=== PATIENT | male | born 1985 | race Caucasian/White ===

== ENCOUNTER 2016-06-07 18:27 | Emergency (ER) | payer BC ==
[2016-06-07 18:41] VITALS: BP 169/91; PULSE 100; RESP 20; TEMP 98.5
[2016-06-07] MEDS ORDERED: SODIUM CHLORIDE 0.9% 2,000 ML IV STA (18:52)
[2016-06-07] MEDS ORDERED: SODIUM CHLORIDE 0.9% 1,000 ML IV STA (18:52)
[2016-06-07] MEDS ORDERED: PROMETHAZINE INJ 25 MG/ML 1 ML VIAL IM STA (18:53)
--- NOTE | 2016-06-07 18:57 | ED ---
General Adult HPI - General Chief complaint: Nausea/Vomiting/Diarrhea Stated complaint: FEVER, DIARRHEA, VOMITING, COUGH, HEADACHE Time Seen by Provider: 06/07/16 18:46 Source: patient, RN notes reviewed Mode of arrival: ambulatory Limitations: no limitations - History of Present Illness Initial comments: Patient's 30-year-old male who presents emergency room today with multiple complaints. Patient does admit that symptoms started yesterday. He states he woke up and middle of night with symptoms of nausea vomiting diarrhea. He states he then began having a persistent cough. He does admit to positive sputum production it's been green in color. Patient also admits that he's been having headache. States diarrhea slightly better after taking Pepto-Bismol earlier today. Patient does admit still feeling nauseated. Still admits to headache. Admits to cough. Admits to chills. Denies any other complaints or associated symptoms currently. Patient denies any recent shortness of breath, chest pain, back pain, numbness or tingling, dysuria or hematuria, constipation , visual changes, or any other complaints. - Related Data Home Medications Medication Instructions Recorded Confirmed Losartan/Hydrochlorothiazide 1 tab PO HS 09/06/15 06/07/16 [Losartan-Hctz 100-12.5 mg Tab] Metoprolol Succinate (ER) [Toprol 50 mg PO DAILY 09/10/15 06/07/16 Xl] Previous Rx's Medication Instructions Recorded Loperamide [Imodium] 2 mg PO DIRECTED #20 capsule 06/07/16 Promethazine [Phenergan] 25 mg PO Q6HR #20 tablet 06/07/16 guaiFENesin 400 mg PO Q4-6H #30 tablet 06/07/16 Allergies Allergy/AdvReac Type Severity Reaction Status Date / Time No Known Allergies Allergy Verified 06/07/16 18:54 Review of Systems ROS Statement: Those systems with pertinent positive or pertinent negative responses have been documented in the HPI. ROS Other: All systems not noted in ROS Statement are negative. Past Medical History Past Medical History: GERD/Reflux, Hypertension History of Any Multi-Drug Resistant Organisms: None Reported Past Surgical History: No Surgical Hx Reported Additional Past Surgical History / Comment(s): colonoscopy, egd Past Anesthesia/Blood Transfusion Reactions: No Reported Reaction Past Psychological History: No Psychological Hx Reported Smoking Status: Never smoker Past Alcohol Use History: Occasional Additional Past Alcohol Use History / Comment(s): "C[employer]ERS" A WEEK Past Drug Use History: None Reported - Past Family History Father Family Medical History: Cancer Additional Family Medical History / Comment(s): lung General Exam - General Exam Comments Initial Comments: General: The patient is awake and alert, in no distress, and does not appear acutely ill. Eye: Pupils are equal, round and reactive to light, extra-ocular movements are intact. No nystagmus. There is normal conjunctiva bilaterally. No signs of icterus. Ears, nose, mouth and throat: There are moist mucous membranes and no oral lesions. Neck: The neck is supple, there is no tenderness or JVD. Cardiovascular: There is a regular rate and rhythm. No murmur, rub or gallop is appreciated. Respiratory: Lungs are clear to auscultation, respirations are non-labored, breath sounds are equal. No wheezes, stridor, rales, or rhonchi. Gastrointestinal: Soft, non-distended, non-tender abdomen without masses or organomegaly noted. There is no rebound or guarding present. No CVA tenderness. Bowel sounds are unremarkable. Musculoskeletal: Normal ROM, no tenderness. Strength 5/5. Sensation intact. Pulses equal bilaterally 2+. Neurological: A&O x 3. CN II-XII intact, There are no obvious motor or sensory deficits. Coordination appears grossly intact. Speech is normal. Skin: Skin is warm and dry and no rashes or lesions are noted. Psychiatric: Cooperative, appropriate mood & affect, normal judgment. Limitations: no limitations Course Vital Signs 06/07/16 18:39 Temperature 98.5 F Pulse Rate 100 Respiratory 20 Rate Blood Pressure 169/91 O2 Sat by Pulse 97 Oximetry Medical Decision Making - Medical Decision Making Patient reexamined at this time shows no signs of distress. His labs been reviewed and negative influenza. Labs unremarkable. Patient feeling better here in the emergency room. Will be discharged home with nausea medication, cough suppressant, and Imodium for his diarrhea. Advised mostly viral illness. His abdomen is soft nontender. Vitals are stable. Patient will be discharged advised to return if any symptoms increase or worsen. He states understanding and is in agreement. - Lab Data Result diagrams: 06/07/16 19:00 06/07/16 19:25 Lab Results 06/07/16 06/07/1606/07/17 Range/Units 18:55 19:00 19:25 WBC 6.3 (3.8-10.6) k/uL RBC 4.85 (4.30-5.90) m/uL Hgb 15.9 (13.0-17.5) gm/dL Hct 46.4 (39.0-53.0) % MCV 95.6 (80.0-100.0) fL MCH 32.7 (25.0-35.0) pg MCHC 34.2 (31.0-37.0) g/dL RDW 13.8 (11.5-15.5) % Plt Count 175 (150-450) k/uL Neutrophils % 76 % Lymphocytes % 14 % Monocytes % 5 % Eosinophils % 2 % Basophils % 0 % Neutrophils # 4.8 (1.3-7.7) k/uL Lymphocytes # 0.9 L (1.0-4.8) k/uL Monocytes # 0.3 (0-1.0) k/uL Eosinophils # 0.1 (0-0.7) k/uL Basophils # 0.0 (0-0.2) k/uL Sodium 140 (137-145) mmol/L Potassium 3.7 (3.5-5.1) mmol/L Chloride 102 (98-107) mmol/L Carbon Dioxide 27 (22-30) mmol/L Anion Gap 11 mmol/L BUN 16 (9-20) mg/dL Creatinine 1.00 (0.66-1.25) mg/dL Est GFR (MDRD) Af Amer >60 (>60 ml/min/1.73 sqM) Est GFR (MDRD) Non-Af >60 (>60 ml/min/1.73 sqM) Glucose 93 (74-99) mg/dL Calcium 8.9 (8.4-10.2) mg/dL Total Bilirubin 1.2 (0.2-1.3) mg/dL AST 30 (17-59) U/L ALT 41 (21-72) U/L Alkaline Phosphatase 74 (38-126) U/L Total Protein 6.9 (6.3-8.2) g/dL Albumin 3.9 (3.5-5.0) g/dL Amylase 47 (30-110) U/L Lipase 74 (23-300) U/L Influenza Type A RNA Not Detected (Not Detectd) Influenza Type B (PCR) Not Detected (Not Detectd) Disposition Clinical Impression: Nausea vomiting and diarrhea, Upper respiratory infection Disposition: HOME SELF-CARE Condition: Good Instructions: Acute Nausea and Vomiting (ED) Additional Instructions: Please use medication as discussed. Please follow-up with family doctor in the next 2 days of symptoms have not improved. Please return to emergency room if the symptoms increase or worsen or for any other concerns. Prescriptions: Loperamide [Imodium] 2 mg PO DIRECTED #20 capsule Promethazine [Phenergan] 25 mg PO Q6HR #20 tablet guaiFENesin 400 mg PO Q4-6H #30 tablet Time of Disposition: 19:57
[2016-06-07 19:09] LABS: Basophils % (A) 0 %; CH 32.4; CHCM 34.1; Eosinophils # (A) 0.1 k/uL (0-0.7); Eosinophils % (A) 2 %; HCT 46.4 % (39.0-53.0); HDW 2.73; HGB 15.9 gm/dL (13.0-17.5); Luc # (Auto) 0.17; Luc % (Auto) 3; Lymphocytes # (A) 0.9 k/uL (1.0-4.8); Lymphocytes % (A) 14 %; MCH 32.7 pg (25.0-35.0); MCHC 34.2 g/dL (31.0-37.0); MCV 95.6 fL (80.0-100.0); Mean Platelet Volume 7.2; Monocytes # (A) 0.3 k/uL (0-1.0); Monocytes % (A) 5 %; Neutrophils # (A) 4.8 k/uL (1.3-7.7); Neutrophils % (A) 76 %; RBC 4.85 m/uL (4.30-5.90); RDW 13.8 % (11.5-15.5); WBC 6.3 k/uL (3.8-10.6); WBC (Perox) 6.28
--- NOTE | 2016-06-07 19:28 | XR ---
EXAMINATION TYPE: XR chest 2V DATE OF EXAM: 06/07/2016 7:19 PM COMPARISON: 11/05/2013 INDICATION: Cough and congestion TECHNIQUE: Single frontal view of the chest is obtained. FINDINGS: The heart size is normal. The pulmonary vasculature is normal. The lungs are clear. IMPRESSION: 1. No acute pulmonary process.
[2016-06-07 19:40] LABS: ALT 41 U/L (21-72); AST 30 U/L (17-59); Alkaline Phosphatase 74 U/L (38-126); Amylase 47 U/L (30-110); Anion Gap 11 mmol/L; Blood Urea Nitrogen 16 mg/dL (9-20); Calcium 8.9 mg/dL (8.4-10.2); Carbon Dioxide 27 mmol/L (22-30); Chloride 102 mmol/L (98-107); Glucose 93 mg/dL (74-99); Non-African American GFR(MDRD) >60 (>60 ml/min/1.73 sqM); Potassium 3.7 mmol/L (3.5-5.1); Sodium 140 mmol/L (137-145); Total Bilirubin 1.2 mg/dL (0.2-1.3); Total Protein 6.9 g/dL (6.3-8.2)
== END 2016-06-07 21:08 | disposition home or self-care (01) ==
LOC: EC 18:27
DX: R11.2 Nausea with vomiting, unspecified (principal); R19.7 Diarrhea, unspecified; J06.9 Acute upper respiratory infection, unspecified; I10 Essential (primary) hypertension; Z79.899 Other long term (current) drug therapy
CPT/HCPCS: 36415; 80053; 82150; 83690; 85025; 87502; 71020; 99284; 96360; 96372; J2550

== ENCOUNTER → 2016-09-11 | Outpatient (CLI) | payer BC ==
--- NOTE | 2016-09-11 21:30 | CONS ---
DATE OF CONSULTATION: 09/11/2016 CONSULTATION/NEW PATIENT EVALUATION HISTORY OF PRESENT ILLNESS/SLEEP-WAKE EVALUATION: 31-year-old gentleman who has been evaluated in the sleep center for possible obstructive sleep apnea-hypopnea syndrome and for checking for getting DOT card. SLEEP SCHEDULE: Patient's usual sleep schedule on working days is from 11:00 p.m. to 6:00 a.m. on weekends from 11:00 p.m. until 8:00 a.m. FALLING ASLEEP: Sometimes he has problem with falling asleep for more than 30 minutes. No TV in bedroom. DURING SLEEP: He sleeps on the side or stomach position. Prefers not to sleep on the back. He sleeps by himself so there is no clear information about his snoring or breathing during sleep. He wakes up from sleep once with nocturia. DURING THE DAY/WAKE STATE: He increased his weight for last 10 years from about 400 pounds up to 460 pounds at the present time. [place] Sleepiness Scale is 3. PAST MEDICAL HISTORY: Positive for hypertension. PAST SURGICAL HISTORY: Cyst removed from the neck. MEDICATIONS: 1. Losartan. 2. Metoprolol. SOCIAL HISTORY: Negative for smoking or using alcohol. REVIEW OF SYSTEMS: Sometimes awakenings from sleep. No fevers. No double vision. No recent chest pain. No shortness of breath. No abdominal pain. No bleeding episodes. No blood in urine. No seizure episodes. FAMILY HISTORY: Hypertension, lung problems, pneumonia, headaches, cancer, acid reflux. PHYSICAL EXAMINATION: GENERAL: A gentleman without distress. VITAL SIGNS: BP 143/94, HR 74, RR 16. Height 6 foot 0. Weight 468. BMI 63.4. Neck 21 inches in circumference. Temperature 98.2. Oxygen saturation at room air 95%. HEENT: PERRLA, EOMI evaluation of oropharynx showed moderately low position of soft palate, restriction of nasal breathing on the left side. NECK: Supple. No JVD. Thyroid is not palpable. Wide neck. LUNGS: Clear to percussion and to auscultation. Good air exchange. No wheezing or rhonchi. HEART: S1, S2 regular. No murmurs, gallops or rubs. ABDOMEN: Obese. Soft and nontender. Bowel sounds are present. No organomegaly appreciated. EXTREMITIES: No clubbing or cyanosis. IT LEAD: Awake, alert, and oriented x3. Cranial nerves 2 to 7 intact. There is no fasciculation or atrophy noted. No focal deficits observed. IMPRESSION: 1. Low position of the soft palate awakenings from sleep, wide neck, obstructive sleep apnea-hypopnea syndrome. 2. Morbid obesity, body mass index 63.4. 3. Hypertension. 4. Status post cyst removed from the neck. 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 PLAN: 1. Polysomnography for evaluation of patient's breathing during sleep. 2. CPAP/BiPAP titration if sleep study confirms obstructive sleep apnea-hypopnea syndrome. 3. Preferable position during sleep on the side. 4. No driving if patient feels any sleepiness. Patient is aware of civil and criminal liability for unsafe driving. 5. I will see patient for follow-up visit to explain results of the testing and following plan. Thank you very much for referring this patient for consultation. Sincerely, Cristino Carranza MD, PhD, FAASM. Diplomat of [place] [employer], Sleep Medicine Board by [employer] Intern [facility] [place]
== END | disposition home or self-care (01) ==
LOC: SLEEP 16:40
PROVIDERS: ATTEND Internal Medicine
DX: G47.33 Obstructive sleep apnea (adult) (pediatric) (principal); E66.01 Morbid (severe) obesity due to excess calories; Z68.44 Body mass index [BMI] 60.0-69.9, adult; I10 Essential (primary) hypertension; Z79.899 Other long term (current) drug therapy

== ENCOUNTER → 2017-02-05 | Outpatient (CLI) | payer BC ==
--- NOTE | 2017-02-05 20:08 | PN ---
FOLLOW UP VISIT DATE OF SERVICE: 02/05/2017 A 31-year-old gentleman has been followed in the Sleep Center for treatment of obstructive sleep apnea-hypopnea syndrome. Recently patient had home sleep apnea test and I discussed results of the sleep study with the patient in detail. Apnea-hypopnea index 24 with oxygen desaturation to 79%. After the patient underwent CPAP titration and his respiration was mostly on control during the test of titration of the pressure to 15 cm of water. Apnea-hypopnea index reduced to 3.5. Subsequently, the patient was started on treatment with CPAP. Patient does not have significant problem with CPAP and uses equipment properly. No snoring with the machine. I checked reading from the machine for 45 days. The patient used equipment at 39 out of 45 days, 33 days more than 4 hours, which is 73% of the time, and 6 days less than 4 hours. Average usage 4 hours 27 minutes. Average usage for all days 3 hours 51 minute. CPAP pressure is 15 cm of water, 95th percentile of leak 30.9 L/minute, which is borderline. Apnea-hypopnea index by reading from the machine is only 1.5, which is perfect. [place] Sleepiness Scale is 3. MEDICATIONS: 1. Losartan. 2. Metoprolol. PHYSICAL EXAMINATION: GENERAL: Patient in no distress. VITAL SIGNS: BP 139/96, HR 94, RR 16, weight 465, temp 98.4, oxygen saturation at room air 96%. HEENT: PERRLA, EOMI, evaluation of oropharynx showed tongue protrudes midline, low position of soft palate. NECK: Supple, no JVD. Thyroid is not palpable. LUNGS: Clear to percussion and to auscultation. Good air exchange. No wheezing or rhonchi. HEART: S1, S2 regular. No murmurs, gallops, or rubs. ABDOMEN: Obese, soft and nontender. Bowel sounds are present. No organomegaly appreciated. EXTREMITIES: No clubbing or cyanosis. ATTACHE: Awake, alert, and oriented X3. Cranial nerves 2 to 7 intact. There is no fasciculation or atrophy. noted. No focal deficits observed. IMPRESSION: 1. Moderate obstructive sleep apnea-hypopnea syndrome by results of home sleep study which do in some situations may underestimate severity. Apnea-hypopnea index 24 on control with continuous positive airway pressure at 15 cm of water. Apnea- hypopnea index normalized to 1.5 per hour. The patient demonstrated borderline component compliance, 73% more than 4 hours. 2. Obesity. 3. Hypertension. 4. Status post cyst removed from the back. 5. 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 PLAN: 1. Continue treatment with CPAP every night for the whole night. 2. Continue losing weight. The patient lost 5 pounds since the day previously. 3. Precautions related to driving. No driving if feeling any sleepiness. Patient is aware about civil and criminal liability for unsafe driving. 4. Will proceed with maintenance of wakefulness test for objective evaluation of patient alertness during the day to confirm that his alertness is normal. 5. I believe he may continue to drive truck with precautions. Thank you very much for allowing me to participate in management of your patient. Sincerely, Cristino Carranza MD, PhD, FAASM Diplomat of [place] [employer] [place] [employer] Admitted Attorneys of [employer] [facility] [place] MMODL / FRANCESCAN: [id number] / MTDSandra
== END | disposition home or self-care (01) ==
LOC: SLEEP 16:59
PROVIDERS: ATTEND Internal Medicine
DX: G47.33 Obstructive sleep apnea (adult) (pediatric) (principal); E66.9 Obesity, unspecified; I10 Essential (primary) hypertension; Z79.899 Other long term (current) drug therapy